=== PATIENT | male | born 1980 | race Caucasian/White ===

== ENCOUNTER 2020-12-26 19:59 | Emergency (ER) | payer BC | END 2020-12-26 21:28 | disposition home or self-care (01) | LOC: JP.ED 19:59 | DX: Z53.21 Procedure and treatment not carried out due to patient leaving prior to being seen by health care provider (principal) ==

== ENCOUNTER 2020-12-27 07:14 | Emergency (ER) | payer BC ==
[2020-12-27] MEDS ORDERED: Lidocaine 1% with EPINEPHrine 1:100,000 50 ML MDV SUBCUT STA (07:42)
--- NOTE | 2020-12-27 07:49 | EDM.PDOC ---
ED HPI GENERAL MEDICAL PROBLEM - General Chief Complaint: Upper Extremity Injury/Pain Stated Complaint: RED AND SORE RIGHT ELBO Time Seen by Provider: 12/27/20 07:30 Source of Information: Reports: Patient History Limitations: Reports: No Limitations - History of Present Illness INITIAL COMMENTS - FREE TEXT/NARRATIVE: 40 yo male from [facility] presents with onset yesterday of R elbow pain and redness/swelling. He denies any recent injury to the area. He has not had a fever, but felt chilled last night. He scraped that elbow a little a few weeks ago and the scab is almost ready to fall off. No hx of the same. Onset: Gradual Onset Date: 12/26/20 Duration: Day(s): (1), Getting Worse Location: Reports: Upper Extremity, Right Quality: Reports: Throbbing Severity: Moderate Improves with: Reports: None Worsens with: Reports: Other (touching area) Context: Reports: Other (See HPI) Associated Symptoms: Reports: Fever/Chills (no fever) Treatments ALGOLOGIST: Reports: Other (see below) (none) Right Elbow Pain Score (Numeric/FACES): 7 - Related Data Allergies Allergy/AdvReac Type Severity Reaction Status Date / Time metronidazole [From Flagyl] Allergy Shortness Verified 12/27/20 07:26 of Breath Home Meds: Home Meds NK [No Known Home Meds] 12/27/20 [History] Past Medical History Gastrointestinal History: Reports: GERD - Infectious Disease History Infectious Disease History: Reports: Meningitis - Past Surgical History GI Surgical History: Reports: Appendectomy Musculoskeletal Surgical History: Reports: Other (See Below) Other Musculoskeletal Surgeries/Procedures:: left wrist reconstruction Social & Family History - Tobacco Use Tobacco Use Status *Q: Never Tobacco User - Caffeine Use Caffeine Use: Reports: Coffee - Recreational Drug Use Recreational Drug Use: No Review of Systems - Review of Systems Review Of Systems: See Below Constitutional: Reports: Chills. Denies: Fever Musculoskeletal: Reports: Joint Pain (R elbow) Skin: Reports: Erythema (R elbow only) Neurological: Reports: No Symptoms ED EXAM, GENERAL - Physical Exam Exam: See Below Exam Limited By: No Limitations General Appearance: Alert, WD/WN, No Apparent Distress Extremities: Increased Warmth (R olecranon area), Redness (R olecranon with swelling) Neurological: Alert, Oriented, CN II-XII Intact, Normal Cognition, No Motor/Sensory Deficits Psychiatric: Normal Affect, Normal Mood Skin Exam: Warm, Dry, Intact, No Rash, Erythema (R olecranon only). No: Normal Color ED TRAUMA EXTREMITY PROCEDURES - I&D Site: R olecranon Skin Prep: Providone-Iodine (Betadine), Isopropyl Alcohol (Alcohol) Local Anesthesia: Lidocaine: 1% with EPI Local Anesthetic Volume: 2cc Area Incised With: Needle Drainage: Clear, Bloody, Small Amount Probed to Break Up Loculations: No Packed With: None Sterile Dressing: Other (Band-Aid) Complications: No Course - Vital Signs Last Recorded V/S: Last Vital Signs Temp 36.6 C 12/27/20 07:25 Pulse 91 12/27/20 07:25 Resp 16 12/27/20 07:25 BP 133/82 12/27/20 07:25 Pulse Ox 97 12/27/20 07:25 - Orders/Labs/Meds Orders: Active Orders 24 hr Category Date Time Status CULTURE BODY FLUID + SMEAR [RM] Stat Lab 12/27/20 08:05 Results Meds: Medications Discontinued Medications Generic Name Dose Route Start Last Admin Trade Name Gerri PRN Reason Stop Dose Admin Lidocaine/Epinephrine 3 ml 12/27/20 07:42 12/27/20 07:47 Lidocaine 1% With Epinephrine 1:100,000 50 Ml Mdv SUBCUT 12/27/20 07:43 3 ml NOW STA Administration Departure - Departure Time of Disposition: 08:35 Disposition: Home, Self-Care 01 Condition: Fair Clinical Impression: Olecranon bursitis, right elbow - Discharge Information *PRESCRIPTION DRUG MONITORING PROGRAM REVIEWED*: Not Applicable *COPY OF PRESCRIPTION DRUG MONITORING REPORT IN PATIENT MIMI: Not Applicable Instructions: Elbow Bursitis, [id number] Referrals: PCP,None [Primary Care Provider] - Forms: ED Department Discharge Additional Instructions: Take cephalexin 500 mg every 6 hrs. for infection. We will get your culture back in 2-3 days and will contact you, call us if you don't hear back. In addition in the event this is an inflammatory problem take ibuprofen 600 mg every 6 hrs with food OR Aleve 2 every 8 hrs with food. Avoid bumping the area. Recheck in the clinic if you are still in the area and not improving. If your culture does not grow anything and you are not improving, then a cortisone type injection may be helpful. Sepsis Event Note (ED) - Evaluation Sepsis Screening Result: No Definite Risk - Focused Exam Vital Signs: Vital Signs Temp Pulse Resp BP Pulse Ox 12/27/20 07:25 36.6 C 91 16 133/82 97 - My Orders Last 24 Hours: My Active Orders 12/27/20 08:05 CULTURE BODY FLUID + SMEAR [RM] Stat - Assessment/Plan Last 24 Hours: My Active Orders 12/27/20 08:05 CULTURE BODY FLUID + SMEAR [RM] Stat
[2020-12-27] MEDS ORDERED: Cephalexin 250 MG Cap PO ONE (08:30)
== END 2020-12-27 08:58 | disposition home or self-care (01) ==
LOC: JP.ED 07:14
DX: M70.21 Olecranon bursitis, right elbow (principal); Z88.1 Allergy status to other antibiotic agents
CPT/HCPCS: 10060; 87070; 87077; 87186; 87205; 99283; A9270